=== PATIENT | male | born 1995 | race Caucasian/White ===

== ENCOUNTER 2020-12-07 12:27 | Outpatient (RCR) | payer BC, OTHER | END 2021-03-04 | disposition home or self-care (01) | LOC: ONC 12:27 | PROVIDERS: ATTEND Internal Medicine Hematology & Oncology | DX: R16.1 Splenomegaly, not elsewhere classified (principal) | CPT/HCPCS: 83615; 86663; 86664; 86665 ×2; G0463; 99213; 99214 ==

== ENCOUNTER → 2020-12-07 | Outpatient (CLI) | payer BC ==
[~2020-12-07] MED LIST: BARIUM SUSPENSION 2.1% (VANILLA SILQ) 450 ML PO ONE; CATHETER FLUSH 10 ML SYR IV PRN; HOLD METFORMIN - RECEIVED CONTRAST 20 ML VIAL IV SCH; IOHEXOL 350 MG/ML 100 ML (OMNIPAQUE 350) VIAL IV ONE; NS 100 ML (IVPB) BAG IV ONE
--- NOTE | 2020-12-07 11:19 | Diagnostic Imaging Report ---
PROCEDURE: CT abdomen and pelvis with and without contrast. TECHNIQUE: Precontrast acquisitions were acquired through the abdomen and pelvis. Multiple contiguous axial images were obtained through the abdomen and pelvis after the administration of intravenous contrast. Auto Exposure Controls were utilized during the CT exam to meet ALARA standards for radiation dose reduction. INDICATION: Splenomegaly. COMPARISON: No prior CT studies are available for comparison. FINDINGS: The lung bases are clear. Liver demonstrates diffuse low density consistent with hepatic steatosis. No discrete liver mass is detected. Gallbladder is unremarkable. There is no biliary ductal dilatation. Pancreas is unremarkable. Spleen is upper limits of normal in size at 14 cm. No adrenal mass is identified. Kidneys are unremarkable. Aorta is nonaneurysmal. Small and large bowel loops are normal caliber. There is no ascites. Unopacified bladder is unremarkable. Prostate is unremarkable. No abdominal lymphadenopathy is seen. IMPRESSION: Unremarkable pre and postcontrast CT of the abdomen and pelvis. No acute features identified. The spleen is upper limits of normal in size at 14 cm. Dictated by: Dictated on workstation # [id number]
== END ==
LOC: RAD FS 08:09
PROVIDERS: ATTEND Internal Medicine Hematology & Oncology
DX: R16.1 Splenomegaly, not elsewhere classified (principal)
CPT/HCPCS: 74178